=== PATIENT | male | born 1960 | race Caucasian/White ===

== ENCOUNTER → 2017-11-25 | Outpatient (CLI) | payer BC ==
--- NOTE | 2017-11-25 19:54 | EST ---
EXERCISE STRESS AGE: 57 SEX: Male. HT: 6 feet WT: 260 PROTOCOL: Justice. STAGE: II DURATION OF EXERCISE: 6:00 HEART RATE REST: 75 BLOOD PRESSURE REST: 146/84 MAXIMUM HEART RATE ACHIEVED: 132 MAXIMUM BLOOD PRESSURE: 195/72 85% MPHR: 138 100% MPHR: 162 METS: 7.3 INDICATIONS: History of chest pain. CLINICAL INFORMATION: Baseline heart rate 75 beats per minute. Baseline blood pressure 146/84 mmHg. Baseline 12-lead ECG showed normal sinus rhythm with normal cardiac intervals. Patient exercised on a Justice protocol for 6 minutes, achieving a peak heart rate of 132 beats per minute. Normal blood pressure response to exercise. Patient was short of breath during exercise, including leg pain. There was no ECG evidence for ischemia. No arrhythmias were noted. Nuclear portion of the stress test will be reported separately. IMPRESSION: Average exercise capacity. No ECG evidence for ischemia or arrhythmia. MMODL / IJN: [id number] /
== END | disposition home or self-care (01) ==
LOC: RADNMMAIN 10:29
PROVIDERS: ATTEND Family Medicine
DX: R07.9 Chest pain, unspecified (principal); R94.31 Abnormal electrocardiogram [ECG] [EKG]
CPT/HCPCS: 93017

== ENCOUNTER → 2022-01-28 | Outpatient (CLI) | payer BC ==
[2022-01-28 14:48] LABS: HCT 44.5 % (39.6-50.0); HGB 14.3 g/dL (13.0-17.0); MCH 31.7 pg (27.0-32.0); MCHC 32.1 g/dL (32.0-37.0); MCV 98.7 fL (80.0-97.0); Mean Platelet Volume 9.9 fL (9.5-12.2); NRBC Per 100 WBC 0 /100 WBCS (0.0-0.0); Platelet Count 214 X 10*3/uL (140-440); RBC 4.51 X 10*6/uL (4.40-5.60); WBC 5.45 X 10*3/uL (4.50-10.00)
[2022-01-28 15:04] LABS: ALT 37 U/L (10-49); AST 22 U/L (14-35); African American GFR (CKD) 110.2 (60.0-200.0); Albumin 4.4 g/dL (3.8-4.9); Albumin/Globulin Ratio 1.76 (1.60-3.17); Alkaline Phosphatase 90 U/L (41-126); BUN/Creat Ratio 11.75 Ratio (12.00-20.00); Blood Urea Nitrogen 9.4 mg/dL (9.0-27.0); Calcium 9.1 mg/dL (8.7-10.3); Carbon Dioxide 28.2 mmol/L (20.0-27.5); Chloride 100 mmol/L (96-109); Chol/HDL Ratio 3.51 Ratio; Globulin 2.5 g/dL (1.6-3.3); Glucose 170 mg/dL (70-110); LDL Cholesterol,Calculated 86.5 mg/dL (0.0-131.0); Non-African American GFR(CKD) 95.1 (60.0-200.0); Potassium 4.2 mmol/L (3.5-5.5); Sodium 139 mmol/L (135-145); Total Protein 6.9 g/dL (6.2-8.2)
== END | disposition home or self-care (01) ==
LOC: LABWHC1 07:26
PROVIDERS: ATTEND Family Medicine
DX: E66.9 Obesity, unspecified (principal); E11.9 Type 2 diabetes mellitus without complications; J44.9 Chronic obstructive pulmonary disease, unspecified
CPT/HCPCS: 36415; 80053; 80061; 83036; 84153; 84443; 85027

== ENCOUNTER → 2022-05-07 | Outpatient (CLI) | payer BC ==
[2022-05-07 14:55] LABS: HCT 43.2 % (39.6-50.0); HGB 13.7 g/dL (13.0-17.0); MCH 31.4 pg (27.0-32.0); MCHC 31.7 g/dL (32.0-37.0); MCV 98.9 fL (80.0-97.0); Mean Platelet Volume 9.9 fL (9.5-12.2); NRBC Per 100 WBC 0 /100 WBCS (0.0-0.0); Platelet Count 218 X 10*3/uL (140-440); RBC 4.37 X 10*6/uL (4.40-5.60); RDW 13.9 % (11.5-14.5); WBC 5.39 X 10*3/uL (4.50-10.00)
[2022-05-07 16:33] LABS: ALT 40 U/L (10-49); AST 23 U/L (14-35); African American GFR (CKD) 114.6 (60.0-200.0); Albumin 4.5 g/dL (3.8-4.9); Albumin/Globulin Ratio 1.96 (1.60-3.17); Alkaline Phosphatase 93 U/L (41-126); BUN/Creat Ratio 17.06 Ratio (12.00-20.00); Blood Urea Nitrogen 12.4 mg/dL (9.0-27.0); Calcium 9.7 mg/dL (8.7-10.3); Carbon Dioxide 29.3 mmol/L (20.0-27.5); Chloride 99 mmol/L (96-109); Chol/HDL Ratio 3.06 Ratio; Globulin 2.3 g/dL (1.6-3.3); Glucose 131 mg/dL (70-110); LDL Cholesterol,Calculated 90.3 mg/dL (0.0-131.0); Non-African American GFR(CKD) 98.9 (60.0-200.0); Potassium 4.3 mmol/L (3.5-5.5); Sodium 138 mmol/L (135-145); Total Protein 6.8 g/dL (6.2-8.2)
== END | disposition home or self-care (01) ==
LOC: LABWHC1 08:28
PROVIDERS: ATTEND Family Medicine
DX: E11.69 Type 2 diabetes mellitus with other specified complication (principal); R53.83 Other fatigue
CPT/HCPCS: 36415; 80053; 80061; 83036; 84443; 85027

== ENCOUNTER → 2022-08-11 | Outpatient (CLI) | payer BC ==
[2022-08-11 10:19] LABS: HCT 40.7 % (39.6-50.0); HGB 13.4 g/dL (13.0-17.0); MCH 31.5 pg (27.0-32.0); MCHC 32.9 g/dL (32.0-37.0); MCV 95.5 fL (80.0-97.0); Mean Platelet Volume 9.3 fL (9.5-12.2); NRBC Per 100 WBC 0 /100 WBCS (0.0-0.0); Platelet Count 233 X 10*3/uL (140-440); RBC 4.26 X 10*6/uL (4.40-5.60); RDW 13.5 % (11.5-14.5); WBC 3.98 X 10*3/uL (4.50-10.00)
[2022-08-11 10:49] LABS: ALT 36 U/L (10-49); AST 27 U/L (14-35); African American GFR (CKD) 110.2 (60.0-200.0); Albumin 4.5 g/dL (3.8-4.9); Albumin/Globulin Ratio 2.05 (1.60-3.17); Alkaline Phosphatase 88 U/L (41-126); Blood Urea Nitrogen 10.8 mg/dL (9.0-27.0); Calcium 9.4 mg/dL (8.7-10.3); Carbon Dioxide 28.5 mmol/L (20.0-27.5); Chloride 101 mmol/L (96-109); Chol/HDL Ratio 2.95 Ratio; Creatine Kinase 84 U/L (35-257); Globulin 2.2 g/dL (1.6-3.3); Glucose 116 mg/dL (70-110); LDL Cholesterol,Calculated 85.1 mg/dL (0.0-131.0); Magnesium 2.2 mg/dL (1.5-2.4); Non-African American GFR(CKD) 95.1 (60.0-200.0); Potassium 4.3 mmol/L (3.5-5.5); Sodium 140 mmol/L (135-145); Total Protein 6.7 g/dL (6.2-8.2); VLDL Calculation 18.56 mg/dL (5.00-40.00)
== END | disposition home or self-care (01) ==
LOC: LABWHC1 07:01
PROVIDERS: ATTEND Family Medicine
DX: E11.69 Type 2 diabetes mellitus with other specified complication (principal); E66.9 Obesity, unspecified; J44.9 Chronic obstructive pulmonary disease, unspecified
CPT/HCPCS: 36415; 80053; 80061; 82550; 83036; 83735; 84153; 84443; 84481; 85027

== ENCOUNTER 2023-04-02 08:35 | Day surgery (SDC) | payer BC ==
[2023-03-31 10:39] VITALS: BMI 30.7
[~2023-04-02 08:35] MED LIST: LACTATED RINGERS 1,000 ML IV SCH; LIDOCAINE 1% (10MG/ML) FOR IV START INTRADERMA PRN
[2023-04-02 09:05] LABS: Glucose,Whole Blood 86 mg/dL (70-110)
[2023-04-02 09:06] VITALS: TEMP 97
[2023-04-02] MEDS ORDERED: PROPOFOL 10 MG/ML 20 ML VIAL IV ONE (10:06)
--- NOTE | 2023-04-02 10:36 | P.PCN ---
Date of Procedure: 04/02/23 Procedure(s) Performed: BRIEF HISTORY: Patient is a 63-year-old pleasant white male scheduled for an elective colonoscopy as a part of evaluation of prior history of colon polyps. PROCEDURE PERFORMED: Colonoscopy. PREOPERATIVE DIAGNOSIS: History of colon polyps. IV sedation per Anesthesia. PROCEDURE: After informed consent was obtained, the patient, was brought into the endoscopy unit. IV sedation was administered by Anesthesia under continuous monitoring. Digital rectal examination was normal. Initially the Olympus CF-160 flexible video colonoscope was then inserted in the rectum, gradually advanced into the cecum with moderate to severe difficulty. Careful examination was performed as the scope was gradually being withdrawn. Ileocecal valve and the appendiceal orifice were visualized and appeared normal. Prep was excellent. Mucosa of the cecum, ascending colon, transverse colon, descending colon, sigmoid colon, and rectum appeared normal. Retroflexion was performed in the rectum and no lesions were seen. The patient tolerated the procedure well. IMPRESSION: Normal-appearing colon from rectum to cecum with no evidence of colorectal neoplasia . RECOMMENDATIONS: Findings of this examination were discussed with the patient as well as his family. He was advised to have a repeat screening colonoscopy in 10 years..
[2023-04-02 10:57] VITALS: RESP 14
[2023-04-02 11:10] VITALS: BP 117/72; PULSE 92
== END 2023-04-02 11:27 | disposition home or self-care (01) ==
LOC: ORWHC2ENDO 08:35
PROVIDERS: ATTEND Internal Medicine Gastroenterology
DX: Z12.11 Encounter for screening for malignant neoplasm of colon (principal); I10 Essential (primary) hypertension; E78.5 Hyperlipidemia, unspecified; G47.33 Obstructive sleep apnea (adult) (pediatric); E11.9 Type 2 diabetes mellitus without complications; Z87.891 Personal history of nicotine dependence; Z79.84 Long term (current) use of oral hypoglycemic drugs; Z79.899 Other long term (current) drug therapy; Z99.89 Dependence on other enabling machines and devices; Z86.010 Personal history of colon polyps; Z98.890 Other specified postprocedural states
CPT/HCPCS: 45378; J2704